=== PATIENT | female | born 1950 | race African-American/Black ===

== ENCOUNTER → 2017-02-12 | Outpatient (CLI) | payer MEDICARE, OTHER | END | disposition home or self-care (01) | LOC: NM 08:51 | PROVIDERS: ATTEND Specialist | DX: E04.2 Nontoxic multinodular goiter (principal) | CPT/HCPCS: 78014; A9516 ==

== ENCOUNTER 2017-06-19 05:31 | Day surgery (SDC) | payer MEDICARE, OTHER ==
[~2017-06-19] VITALS: Ht 162.6 cm; Wt 69.4 kg
[~2017-06-19 05:31] MED LIST: ACET-2178 PO; ATOR10TA PO; ESTR1PAT TD; NAPR220T66 PO; [UNRECOGNIZED DRUG - CODE] PO
[2017-06-19] MEDS ORDERED: LACTATED RINGERS 1,000 ML IV SCH (06:30)
[2017-06-19] MEDS ORDERED: BUPIVACAINE HCL/PF 0.5% (5MG/ML) 10ML ONE (07:19)
[2017-06-19] MEDS ORDERED: LIDOCAINE HCL/PF 2% 20MG/ML 5 ML/VIAL ONE (07:25)
[2017-06-19] MEDS ORDERED: HYALURONATE SODIUM 14 MG/ML 0.85ML SYRINGE IO ONE (07:27)
[2017-06-19] MEDS ORDERED: BALANCED SALT IRRIG SOLN COMB1 500ML OP SCH (07:45)
[2017-06-19] MEDS ORDERED: PROPOFOL 200MG/20ML VIAL IV ONE ×2 (08:03→08:59)
[2017-06-19] MEDS ORDERED: LIDOCAINE HCL/PF 1% 10 MG/ML 5ML VIAL ONE (08:03)
[2017-06-19] MEDS ORDERED: MIDAZOLAM HCL 2 MG/2 ML VIAL ONE (08:04)
[2017-06-19] MEDS ORDERED: FENTANYL CITRATE/PF 50MCG/ML 2ML VIAL ONE (08:57)
[2017-06-19] MEDS ORDERED: TETRACAINE 0.5% OPHTH DROPS 4ML ONE (12:33)
[2017-06-19] MEDS ORDERED: PREDNISOLONE ACETATE 1% OPHTH DROPS 1ML ONE (12:33)
[2017-06-19] MEDS ORDERED: CIPROFLOXACIN 0.3% OPHTH SOLN 2.5ML ONE (12:33)
[2017-06-19] MEDS ORDERED: NEO/POLYMYX B SULF/DEXAMETH OPHTH OINT 3.5GM ONE (12:33)
[2017-06-19] MEDS ORDERED: LIDOCAINE HCL 2%/EPINEPHRINE 1:100,000 20 ML VIAL INFIL ONE (12:33)
[2017-06-19] MEDS ORDERED: BALANCED SALT IRRIG SOLN 15ML ONE (12:33)
[2017-06-19] MEDS ORDERED: BUPIVACAINE HCL/PF 0.75% (7.5MG/ML) 10ML ONE (12:33)
== END 2017-06-19 09:45 | disposition home or self-care (01) ==
LOC: OR 05:31
PROVIDERS: ATTEND Ophthalmology
DX: T85.698A Other mechanical complication of other specified internal prosthetic devices, implants and grafts, initial encounter (principal); K21.9 Gastro-esophageal reflux disease without esophagitis; E78.00 Pure hypercholesterolemia, unspecified; Z88.2 Allergy status to sulfonamides; Z88.5 Allergy status to narcotic agent; Z79.899 Other long term (current) drug therapy; Z87.891 Personal history of nicotine dependence; Z98.890 Other specified postprocedural states
CPT/HCPCS: 66183; J2250; J3490; J7120; J2704; J3010

== ENCOUNTER 2017-07-15 07:09 | Day surgery (SDC) | payer MEDICARE, OTHER ==
[~2017-07-15] VITALS: Ht 162.6 cm; Wt 75.0 kg
[2017-07-15 09:19] VITALS: BP 132/81
[2017-07-15] MEDS ORDERED: MIDAZOLAM HCL 2 MG/2 ML VIAL ONE (10:05)
[2017-07-15] MEDS ORDERED: PROPOFOL 200MG/20ML VIAL IV ONE (10:11)
[2017-07-15] MEDS ORDERED: ONDANSETRON HCL 4MG/2ML VIAL ONE (10:20)
[2017-07-15] MEDS ORDERED: TRIAMCINOLONE ACETONIDE 40MG/ML 1ML VIAL ONE (10:37)
[2017-07-15] MEDS ORDERED: BUPIVACAINE HCL/PF 0.75% (7.5MG/ML) 10ML ONE (11:59)
[2017-07-15] MEDS ORDERED: PREDNISOLONE ACETATE 1% OPHTH DROPS 1ML ONE (11:59)
[2017-07-15] MEDS ORDERED: CIPROFLOXACIN 0.3% OPHTH SOLN 2.5ML ONE (11:59)
[2017-07-15] MEDS ORDERED: LIDOCAINE HCL 2%/EPINEPHRINE 1:100,000 20 ML VIAL INFIL ONE (11:59)
[2017-07-15] MEDS ORDERED: BALANCED SALT IRRIG SOLN 15ML ONE (11:59)
[2017-07-15] MEDS ORDERED: NEO/POLYMYX B SULF/DEXAMETH OPHTH OINT 3.5GM ONE (11:59)
[2017-07-15] MEDS ORDERED: TETRACAINE 0.5% OPHTH DROPS 4ML ONE (11:59)
== END 2017-07-15 11:00 | disposition home or self-care (01) ==
LOC: ER 07:27 → OR 10:00 → CANRESERV 14:15 → ENRESERV 14:15 → CANBEDREQ 17:15 → ER 07-16 09:39
PROVIDERS: ATTEND Ophthalmology
DX: T85.398D Other mechanical complication of other ocular prosthetic devices, implants and grafts, subsequent encounter (principal); E78.5 Hyperlipidemia, unspecified; K21.9 Gastro-esophageal reflux disease without esophagitis; Z88.2 Allergy status to sulfonamides; Z88.8 Allergy status to other drugs, medicaments and biological substances; Z79.899 Other long term (current) drug therapy; Z98.890 Other specified postprocedural states
CPT/HCPCS: 66185; 99285; J2250; J2405; J3301; J3490; J2704

== ENCOUNTER 2020-12-15 18:37 | Day surgery (SDC) | payer MEDICARE, OTHER ==
[~2020-12-15] VITALS: Ht 162.6 cm; Wt 73.5 kg
[~2020-12-15 18:37] MED LIST changes: -ACET-2178 PO; +BALANCED SALT IRRIG SOLN 15ML ONE; +CIPROFLOXACIN 0.3% OPHTH SOLN 2.5ML ONE; +LIDOCAINE HCL 2%/EPINEPHRINE 1:100,000 20 ML VIAL INFIL ONE; +NEO/POLYMYX B SULF/DEXAMETH OPHTH OINT 3.5GM ONE; +PREDNISOLONE ACETATE 1% OPHTH DROPS 5ML ONE; +TETRACAINE 0.5% OPHTH DROPS 4ML ONE; +TOPUD PO
[2020-12-15 21:00] VITALS: BP 159/63
[2020-12-15] MEDS ORDERED: PROPOFOL 200MG/20ML VIAL IV ONE (21:08)
[2020-12-15] MEDS ORDERED: LIDOCAINE HCL/PF 1% 10 MG/ML 5ML VIAL ONE (21:08)
[2020-12-15] MEDS ORDERED: LIDOCAINE HCL 2% JELLY 5ML ONE (21:50)
[2020-12-15] MEDS ORDERED: CITRIC ACID/SODIUM CITRATE SOLN 30ML UDC PO NR (22:00)
[2020-12-15] MEDS ORDERED: MIDAZOLAM HCL 2 MG/2 ML VIAL ONE ×2 (22:12→22:25)
[2020-12-15] MEDS ORDERED: GLYCOPYRROLATE 0.2 MG/ML 2ML VIAL ONE (22:17)
[2020-12-15] MEDS ORDERED: FENTANYL CITRATE/PF 50MCG/ML 2ML VIAL ONE (22:21)
[2020-12-15] MEDS ORDERED: HYALURONATE SODIUM 10 MG/ML 0.55ML SYRINGE IO ONE (22:35)
== END 2020-12-15 23:15 | disposition home or self-care (01) ==
LOC: ER 18:37 → CANBEDREQ 22:21 → OR 22:36
PROVIDERS: ATTEND Ophthalmology
DX: H35.81 Retinal edema (principal); S05.51XA Penetrating wound with foreign body of right eyeball, initial encounter; I10 Essential (primary) hypertension; X58.XXXA Exposure to other specified factors, initial encounter; Y93.9 Activity, unspecified; Y92.9 Unspecified place or not applicable; Z88.2 Allergy status to sulfonamides; Z88.6 Allergy status to analgesic agent; Z20.822 Contact with and (suspected) exposure to COVID-19
CPT/HCPCS: 65235; 87426; 88300; 93005; 99285; J2250; J2704; J3010; J3490